=== PATIENT | female | born 1965 | race Caucasian/White ===

== ENCOUNTER 2017-03-07 07:29 | Outpatient (CLI) | payer BC, OTHER ==
[2017-03-07 09:43] LABS: BASOPHILS % (AUTO) 0.5 % (0.0-2.0); EOSINOPHILS # (AUTO) 0.1 K/uL (0.0-0.7); EOSINOPHILS % (AUTO) 1.6 % (0.0-7.0); HEMATOCRIT 42.9 % (31.2-41.9); HEMOGLOBIN 14.4 g/dL (10.9-14.3); LYMPHOCYTES # (AUTO) 2.4 K/uL (20.0-40.0); LYMPHOCYTES % (AUTO) 36.2 % (20.5-51.5); MEAN CORPUSCULAR HEMOGLOBIN 27.3 uug (24.7-32.8); MEAN CORPUSCULAR HGB CONC 34 g/dL (32.3-35.6); MEAN CORPUSCULAR VOLUME 81.3 fL (75.5-95.3); MONOCYTES # (AUTO) 0.3 K/uL (2.0-10.0); MONOCYTES % (AUTO) 5.1 % (0.0-11.0); NEUTROPHILS # (AUTO) 3.8 K/uL (1.8-8.9); NEUTROPHILS % (AUTO) 56.6 % (38.5-71.5); PLATELET COUNT (AUTO) 174 K/uL (179-408); RED BLOOD CELL COUNT(AUTO) 5.28 MIL/uL (3.63-4.92); RED CELL DISTRIBUTION WIDTH 12.5 % (12.3-17.7); WHITE BLOOD COUNT (AUTO) 6.6 K/uL (3.8-11.8)
[2017-03-07 10:06] LABS: *BILIRUBIN,URIN NEGATIVE (NEGATIVE); *BLOOD, URINE NEGATIVE (NEGATIVE); *CLARITY,URINE CLEAR (CLEAR); *COLOR,URINE YELLOW (YELLOW); *KETONES,URINE NEGATIVE (NEGATIVE); *PROTEIN,URINE NEGATIVE (NEGATIVE); *UROBILINOGEN,URINE 0.2 E.U./dl (NORMAL); ALBUMIN 4.1 g/dL (3.4-5.0); BILIRUBIN,TOTAL 0.4 mg/dL (0.2-1.0); CALCIUM 9.1 mg/dL (8.5-10.1); CREATININE 0.9 mg/dL (0.6-1.3); LEUKOCYTE ESTERASE ,URINE NEGATIVE (NEGATIVE); NITRITE, URINE NEGATIVE (NEGATIVE); POTASSIUM 4.1 mmol/L (3.5-5.1); TOTAL PROTEIN, SERUM 7.8 g/dL (6.4-8.2); UGLUCOSE NEGATIVE (NEGATIVE)
[2017-03-07 10:11] LABS: THYROID STIMULATING HORMONE 2.305 mIU/mL (0.358-3.740)
[2017-03-07 10:22] LABS: BACTERIA,URINE FEW /HPF (NONE SEEN); RBC,URINE 0-3 /HPF (0-3); SQUAMOUS EPITHELIAL CELL,UR FEW /HPF (NONE SEEN); WBC,URINE 0-3 /HPF (0-3)
== END 2017-03-07 23:59 | disposition home or self-care (01) ==
LOC: LAB 07:29
PROVIDERS: ATTEND Family Medicine
DX: I10 Essential (primary) hypertension (principal); E55.9 Vitamin D deficiency, unspecified; R73.9 Hyperglycemia, unspecified
CPT/HCPCS: 36415; 82306; 84443; 85025

== ENCOUNTER → 2017-05-28 | Outpatient (CLI) | payer BC, OTHER ==
[2017-05-28 08:32] LABS: BASOPHILS % (AUTO) 0.7 % (0.0-2.0); EOSINOPHILS # (AUTO) 0.1 K/uL (0.0-0.7); EOSINOPHILS % (AUTO) 1.3 % (0.0-7.0); HEMATOCRIT 42.1 % (37-47); HEMOGLOBIN 13.6 G/DL (12.0-16.0); LYMPHOCYTES # (AUTO) 2.3 K/UL (0.8-4.8); MEAN CORPUSCULAR HEMOGLOBIN 26.8 UUG (27.0-31.0); MEAN CORPUSCULAR HGB CONC 32 g/dL (32.0-37.0); MEAN CORPUSCULAR VOLUME 82.6 FL (81.0-99.0); MONOCYTES # (AUTO) 0.4 K/UL (0.1-1.30); MONOCYTES % (AUTO) 6.7 % (0.0-11.0); NEUTROPHILS # (AUTO) 3.6 K/UL (1.8-8.9); NEUTROPHILS % (AUTO) 55.3 % (38.5-71.5); PLATELET COUNT (AUTO) 193 K/UL (150-450); WHITE BLOOD COUNT (AUTO) 6.4 K/UL (4.0-11.2)
[2017-05-28 08:42] LABS: POTASSIUM 4.2 mmol/L (3.5-5.1)
[2017-05-28 08:48] LABS: BILIRUBIN,TOTAL 0.5 mg/dL (0.2-1.0); TOTAL PROTEIN, SERUM 7.5 g/dL (6.4-8.2)
[2017-05-28 08:59] LABS: THYROID STIMULATING HORMONE 2.343 mIU/mL (0.358-3.740)
== END | disposition home or self-care (01) ==
LOC: LAB 07:37
PROVIDERS: ATTEND Family Medicine
DX: E78.2 Mixed hyperlipidemia (principal); E55.9 Vitamin D deficiency, unspecified; R73.9 Hyperglycemia, unspecified
CPT/HCPCS: 36415; 82306; 84443; 84480; 85025

== ENCOUNTER → 2017-08-20 | Outpatient (CLI) | payer BC, OTHER ==
[2017-08-20 11:58] LABS: BILIRUBIN,TOTAL 0.3 mg/dL (0.2-1.0); POTASSIUM 4.1 mmol/L (3.5-5.1); TOTAL PROTEIN, SERUM 7.8 g/dL (6.4-8.2)
[2017-08-20 12:00] LABS: BASOPHILS % (AUTO) 0.6 % (0.0-2.0); EOSINOPHILS % (AUTO) 0.4 % (0.0-7.0); HEMATOCRIT 41.8 % (37-47); LYMPHOCYTES # (AUTO) 2.4 K/UL (0.8-4.8); LYMPHOCYTES % (AUTO) 34.8 % (20.5-51.5); MEAN CORPUSCULAR HEMOGLOBIN 27.4 UUG (27.0-31.0); MEAN CORPUSCULAR HGB CONC 34 g/dL (32.0-37.0); MEAN CORPUSCULAR VOLUME 81.8 FL (81.0-99.0); MONOCYTES # (AUTO) 0.4 K/UL (0.1-1.30); MONOCYTES % (AUTO) 5.5 % (0.0-11.0); NEUTROPHILS # (AUTO) 4.2 K/UL (1.8-8.9); NEUTROPHILS % (AUTO) 58.7 % (38.5-71.5); PLATELET COUNT (AUTO) 208 K/UL (150-450); RED BLOOD CELL COUNT(AUTO) 5.11 MIL/UL (4.2-5.4)
[2017-08-20 12:20] LABS: THYROID STIMULATING HORMONE 3.693 mIU/mL (0.358-3.740)
[2017-08-20 12:23] LABS: *BILIRUBIN,URIN NEGATIVE (NEGATIVE); *BLOOD, URINE NEGATIVE (NEGATIVE); *CLARITY,URINE CLEAR (CLEAR); *COLOR,URINE YELLOW (YELLOW); *KETONES,URINE NEGATIVE (NEGATIVE); *PROTEIN,URINE NEGATIVE (NEGATIVE); *UROBILINOGEN,URINE 0.2 E.U./dl (NORMAL); LEUKOCYTE ESTERASE ,URINE 2+ (NEGATIVE); NITRITE, URINE NEGATIVE (NEGATIVE); UGLUCOSE NEGATIVE (NEGATIVE)
[2017-08-20 12:42] LABS: BACTERIA,URINE NONE SEEN /HPF (NONE SEEN); RBC,URINE NONE SEEN /HPF (0-3); SQUAMOUS EPITHELIAL CELL,UR MODERATE /HPF (NONE SEEN); WBC,URINE 0-3 /HPF (0-3)
== END | disposition home or self-care (01) ==
LOC: LAB 11:27
PROVIDERS: ATTEND Family Medicine
DX: E55.9 Vitamin D deficiency, unspecified (principal); E11.9 Type 2 diabetes mellitus without complications
CPT/HCPCS: 82043; 82306; 82570; 84443; 85025

== ENCOUNTER 2018-01-21 10:07 | Outpatient (CLI) | payer BC, OTHER ==
[2018-01-21 10:36] LABS: *BILIRUBIN,URIN NEGATIVE (NEGATIVE); *BLOOD, URINE Trace-intact (NEGATIVE); *CLARITY,URINE CLEAR (CLEAR); *COLOR,URINE YELLOW (YELLOW); *KETONES,URINE NEGATIVE (NEGATIVE); *PROTEIN,URINE NEGATIVE (NEGATIVE); *UROBILINOGEN,URINE 0.2 E.U./dl (NORMAL); LEUKOCYTE ESTERASE ,URINE 1+ (NEGATIVE); NITRITE, URINE NEGATIVE (NEGATIVE); UGLUCOSE NEGATIVE (NEGATIVE)
[2018-01-21 10:37] LABS: BASOPHILS # (AUTO) 0.1 K/uL (0.0-8.0); BASOPHILS % (AUTO) 0.9 % (0.0-2.0); EOSINOPHILS # (AUTO) 0.1 K/uL (0.0-0.7); EOSINOPHILS % (AUTO) 1.2 % (0.0-7.0); HEMATOCRIT 42.5 % (31.2-41.9); HEMOGLOBIN 14.3 g/dL (10.9-14.3); LYMPHOCYTES # (AUTO) 2.4 K/uL (20.0-40.0); LYMPHOCYTES % (AUTO) 35.3 % (20.5-51.5); MEAN CORPUSCULAR HEMOGLOBIN 27.7 uug (24.7-32.8); MEAN CORPUSCULAR HGB CONC 34 g/dL (32.3-35.6); MEAN CORPUSCULAR VOLUME 82.4 fL (75.5-95.3); MONOCYTES # (AUTO) 0.3 K/uL (2.0-10.0); MONOCYTES % (AUTO) 4.2 % (0.0-11.0); NEUTROPHILS # (AUTO) 3.9 K/uL (1.8-8.9); NEUTROPHILS % (AUTO) 58.4 % (38.5-71.5); PLATELET COUNT (AUTO) 181 K/uL (179-408); RED BLOOD CELL COUNT(AUTO) 5.15 MIL/uL (3.63-4.92); WHITE BLOOD COUNT (AUTO) 6.7 K/uL (3.8-11.8)
[2018-01-21 10:42] LABS: BACTERIA,URINE FEW /HPF (NONE SEEN); SQUAMOUS EPITHELIAL CELL,UR FEW /HPF (NONE SEEN)
[2018-01-21 10:56] LABS: BILIRUBIN,TOTAL 0.5 mg/dL (0.2-1.0); CREATININE 0.9 mg/dL (0.6-1.3); POTASSIUM 3.8 mmol/L (3.5-5.1)
[2018-01-21 11:28] LABS: THYROID STIMULATING HORMONE 3.31 mIU/mL (0.358-3.740)
== END 2018-01-21 23:59 | disposition home or self-care (01) ==
LOC: LAB 10:07
PROVIDERS: ATTEND Family Medicine
DX: E11.9 Type 2 diabetes mellitus without complications (principal)
CPT/HCPCS: 82043; 82570; 84443; 85025

== ENCOUNTER 2018-01-22 08:08 | Outpatient (CLI) | payer BC, OTHER ==
[2018-01-22 08:34] LABS: CREATININE 0.8 mg/dL (0.6-1.3); POTASSIUM 4.4 mmol/L (3.5-5.1)
== END 2018-01-22 23:59 | disposition home or self-care (01) ==
LOC: LAB 08:08
PROVIDERS: ATTEND Family Medicine
DX: E87.1 Hypo-osmolality and hyponatremia (principal)
CPT/HCPCS: 36415

== ENCOUNTER 2018-01-29 08:37 | Outpatient (CLI) | payer BC, OTHER | END 2018-01-29 23:59 | disposition home or self-care (01) | LOC: US 08:37 | PROVIDERS: ATTEND Family Medicine | DX: N28.1 Cyst of kidney, acquired (principal) | CPT/HCPCS: 76770 ==

== ENCOUNTER 2018-02-18 08:48 | Outpatient (CLI) | payer BC, OTHER ==
[2018-02-18 09:54] LABS: *BILIRUBIN,URIN NEGATIVE (NEGATIVE); *BLOOD, URINE NEGATIVE (NEGATIVE); *CLARITY,URINE CLOUDY (CLEAR); *COLOR,URINE YELLOW (YELLOW); *KETONES,URINE NEGATIVE (NEGATIVE); *PROTEIN,URINE NEGATIVE (NEGATIVE); *UROBILINOGEN,URINE 0.2 E.U./dl (NORMAL); BASOPHILS % (AUTO) 0.7 % (0.0-2.0); EOSINOPHILS # (AUTO) 0.1 K/uL (0.0-0.7); EOSINOPHILS % (AUTO) 2.2 % (0.0-7.0); HEMATOCRIT 44.2 % (31.2-41.9); HEMOGLOBIN 14.6 g/dL (10.9-14.3); LEUKOCYTE ESTERASE ,URINE 2+ (NEGATIVE); LYMPHOCYTES # (AUTO) 2.3 K/uL (20.0-40.0); LYMPHOCYTES % (AUTO) 40.8 % (20.5-51.5); MEAN CORPUSCULAR HEMOGLOBIN 27.7 uug (24.7-32.8); MEAN CORPUSCULAR HGB CONC 33 g/dL (32.3-35.6); MEAN CORPUSCULAR VOLUME 83.7 fL (75.5-95.3); MONOCYTES # (AUTO) 0.3 K/uL (2.0-10.0); MONOCYTES % (AUTO) 6.1 % (0.0-11.0); NEUTROPHILS # (AUTO) 2.8 K/uL (1.8-8.9); NEUTROPHILS % (AUTO) 50.2 % (38.5-71.5); NITRITE, URINE NEGATIVE (NEGATIVE); PH,URINE 5.5 (5.0-8.0); PLATELET COUNT (AUTO) 191 K/uL (179-408); RED BLOOD CELL COUNT(AUTO) 5.28 MIL/uL (3.63-4.92); UGLUCOSE NEGATIVE (NEGATIVE); WHITE BLOOD COUNT (AUTO) 5.7 K/uL (3.8-11.8)
[2018-02-18 10:02] LABS: BACTERIA,URINE FEW /HPF (NONE SEEN); MUCUS,URINE FEW /LPF (0-FEW); SQUAMOUS EPITHELIAL CELL,UR MODERATE /HPF (NONE SEEN); WBC,URINE TNTC /HPF (0-3)
[2018-02-18 10:20] LABS: THYROID STIMULATING HORMONE 2.371 mIU/mL (0.358-3.740)
[2018-02-18 10:37] LABS: BILIRUBIN,TOTAL 0.4 mg/dL (0.2-1.0); MAGNESIUM 2.1 mg/dL (1.8-2.4); PHOSPHOROUS 3.7 mg/dL (2.5-4.9); POTASSIUM 3.7 mmol/L (3.5-5.1)
[2018-02-19 08:06] LABS: THYROID PEROXIDASE (TPO) AB 33 IU/mL (0-34); TRIIODOTHYRONINE, FREE 3.2 pg/mL (2.0-4.4)
[2018-02-19 12:07] LABS: ESTRADIOL 12.9 pg/mL (.); FOLLICLE STIMULATION HORMONE 64.3 mIU/mL (.); LUTEINIZING HORMONE 26.8 mIU/mL (.); VIT D, 25-HYDROXY 33.6 ng/mL (30.0-100.0)
[2018-02-19 14:12] LABS: INSULIN 15.4 uIU/mL (2.6-24.9)
[2018-02-20 05:08] LABS: INSULIN-LIKE GROWTH FACTOR 118 ng/mL (53-190)
== END 2018-02-18 23:59 | disposition home or self-care (01) ==
LOC: LAB 08:48
PROVIDERS: ATTEND Surgery
DX: Z01.818 Encounter for other preprocedural examination (principal)
CPT/HCPCS: 36415; 70030-TC; 82306; 82670; 82746; 83001; 83002; 83090; 83525; 83735; 84100; 84305; 84443; 84481; 84482; 85025; 85730

== ENCOUNTER 2018-02-21 08:31 | Day surgery (SDC) | payer BC, OTHER ==
[2018-02-21] MEDS ORDERED: SIMETHICONE 40 MG/0.6 ML 30 ML BOTTLE MC ONE (08:32)
[2018-02-21] MEDS ORDERED: IV NORMAL SALINE 1000 ML BAG IV ONE (08:32)
[2018-02-21] MEDS ORDERED: PROPOFOL 200 MG/20 ML BOTTLE IV ONE (08:32)
== END 2018-02-21 13:30 | disposition home or self-care (01) ==
LOC: DS 08:31
PROVIDERS: ATTEND Surgery
DX: K64.8 Other hemorrhoids (principal); K25.9 Gastric ulcer, unspecified as acute or chronic, without hemorrhage or perforation; K29.70 Gastritis, unspecified, without bleeding; K44.9 Diaphragmatic hernia without obstruction or gangrene; K57.30 Diverticulosis of large intestine without perforation or abscess without bleeding; K29.80 Duodenitis without bleeding; K63.89 Other specified diseases of intestine; Z79.899 Other long term (current) drug therapy; J45.909 Unspecified asthma, uncomplicated; Z85.42 Personal history of malignant neoplasm of other parts of uterus; R73.9 Hyperglycemia, unspecified; E78.5 Hyperlipidemia, unspecified; I10 Essential (primary) hypertension; G43.909 Migraine, unspecified, not intractable, without status migrainosus; E55.9 Vitamin D deficiency, unspecified
CPT/HCPCS: 71046; 88342; A4217; A4663; J3490; J7030

== ENCOUNTER 2018-03-26 09:14 | Outpatient (CLI) | payer BC, OTHER ==
[2018-03-26 09:54] LABS: CREATININE 0.9 mg/dL (0.6-1.3)
[2018-03-27] MEDS ORDERED: IV NORMAL SALINE 100 ML ONE (07:29)
[2018-03-27] MEDS ORDERED: NORMAL SALINE FLUSH 10 ML DISP.SYRIN ONE (07:29)
[2018-03-27] MEDS ORDERED: IOHEXOL 300MG/ML 100 ML INFUS..BTL ONE (07:29)
[2018-03-27] MEDS ORDERED: SWABABLE VALVE TRANSFER SET EA MC ONE (07:29)
== END 2018-03-26 23:59 | disposition home or self-care (01) ==
LOC: LAB 09:14
PROVIDERS: ATTEND Family Medicine
DX: R31.9 Hematuria, unspecified (principal)
CPT/HCPCS: 36415; 84520; J3490; Q9967

== ENCOUNTER 2018-03-27 07:02 | Outpatient (CLI) | payer BC, OTHER | END 2018-03-27 23:59 | disposition home or self-care (01) | LOC: RAD 07:02 | PROVIDERS: ATTEND Family Medicine | DX: N28.1 Cyst of kidney, acquired (principal) | CPT/HCPCS: J3490; Q9967 ==

== ENCOUNTER 2018-12-01 09:11 | Emergency (ER) | payer BC, OTHER ==
[~2018-12-01] VITALS: Ht 157.5 cm; Wt 74.8 kg
[2018-12-01] MEDS ORDERED: DEXAMETHASONE SOD PHOSPHATE 4 MG INJ IV ONE (09:45)
[2018-12-01] MEDS ORDERED: DEXAMETHASONE SOD PHOSPHATE 10 MG INJ ONE (09:47)
[2018-12-01] MEDS ORDERED: diphenhydrAMINE 50 MG/1 ML VIAL ONE (09:56)
[2018-12-01] MEDS ORDERED: diphenhydrAMINE 50 MG/1 ML VIAL IV ONE (10:00)
[2018-12-01 10:33] VITALS: BP 120/70
--- NOTE | 2018-12-01 10:34 | NUR ---
Patient discharged to home in stable conditon. Written and verbal after care instructions given. Patient verbalizes understanding of instructions.
== END 2018-12-01 10:34 | disposition home or self-care (01) ==
LOC: ER 09:11
DX: T78.40XA Allergy, unspecified, initial encounter (principal); L50.9 Urticaria, unspecified; Z88.5 Allergy status to narcotic agent; Z91.018 Allergy to other foods
CPT/HCPCS: 96374; 96375; 99283; J1100; J1200; A4663

== ENCOUNTER 2019-03-12 07:54 | Outpatient (CLI) | payer BC, OTHER ==
[2019-03-13 08:06] LABS: *CELIAC IMMUNOGLOBULIN A 234 mg/dL (87-352)
[2019-03-14 11:06] LABS: *CELIAC DEAMIDATED GLIADIN IGA 8 units (0-19); *CELIAC DEAMIDATED GLIADIN IGG 2 units (0-19)
== END 2019-03-12 23:59 | disposition home or self-care (01) ==
LOC: LAB 07:54
PROVIDERS: ATTEND Family Medicine
DX: Z91.018 Allergy to other foods (principal)
CPT/HCPCS: 36415; 82785

== ENCOUNTER 2019-05-26 09:13 | Emergency (ER) | payer BC, OTHER ==
[~2019-05-26] VITALS: Ht 157.5 cm; Wt 74.8 kg
--- NOTE | 2019-05-26 09:25 | NUR ---
PADMINI MCCRARY AT BEDSIDE FOR MSE.
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
--- NOTE | 2019-05-26 09:42 | NUR ---
Patient discharged to home in stable conditon. Written and verbal after care instructions given. Patient verbalizes understanding of instructions. ALL BELONGINGS W/ PT. PT SELF-AMBULATED W/O DIFFICULTY.
[2019-05-26 09:43] VITALS: BP 133/79
== END 2019-05-26 09:44 | disposition home or self-care (01) ==
LOC: ER 09:13
DX: S39.012A Strain of muscle, fascia and tendon of lower back, initial encounter (principal); M54.41 Lumbago with sciatica, right side; Z90.49 Acquired absence of other specified parts of digestive tract; Z90.710 Acquired absence of both cervix and uterus; Z88.5 Allergy status to narcotic agent; Z91.018 Allergy to other foods; X50.1XXA Overexertion from prolonged static or awkward postures, initial encounter; Y93.89 Activity, other specified; Y92.89 Other specified places as the place of occurrence of the external cause; Y99.8 Other external cause status
CPT/HCPCS: A4663

== ENCOUNTER 2020-04-13 07:59 | Outpatient (CLI) | payer BC, OTHER ==
[2020-04-13 09:04] LABS: BASOPHILS % (AUTO) 0.6 % (0.0-2.0); EOSINOPHILS # (AUTO) 0.1 K/uL (0.0-0.7); HEMATOCRIT 42.1 % (31.2-41.9); HEMOGLOBIN 14.1 g/dL (10.9-14.3); LYMPHOCYTES # (AUTO) 2.7 K/uL (20.0-40.0); LYMPHOCYTES % (AUTO) 41.7 % (20.5-51.5); MEAN CORPUSCULAR HEMOGLOBIN 28.1 uug (24.7-32.8); MEAN CORPUSCULAR HGB CONC 33 g/dL (32.3-35.6); MONOCYTES # (AUTO) 0.3 K/uL (2.0-10.0); MONOCYTES % (AUTO) 5.2 % (0.0-11.0); NEUTROPHILS # (AUTO) 3.3 K/uL (1.8-8.9); NEUTROPHILS % (AUTO) 51.5 % (38.5-71.5); PLATELET COUNT (AUTO) 188 K/uL (179-408); RED BLOOD CELL COUNT(AUTO) 5.01 MIL/uL (3.63-4.92); WHITE BLOOD COUNT (AUTO) 6.4 K/uL (3.8-11.8)
[2020-04-13 09:29] LABS: BILIRUBIN,TOTAL 0.5 mg/dL (0.2-1.0); POTASSIUM 4.2 mmol/L (3.5-5.1); TOTAL PROTEIN, SERUM 7.6 g/dL (6.4-8.2)
[2020-04-13 10:05] LABS: THYROID STIMULATING HORMONE 2.973 mIU/mL (0.358-3.740)
== END 2020-04-13 23:59 | disposition home or self-care (01) ==
LOC: LAB 07:59
PROVIDERS: ATTEND Internal Medicine Interventional Cardiology
DX: E03.9 Hypothyroidism, unspecified (principal); E11.9 Type 2 diabetes mellitus without complications; E78.5 Hyperlipidemia, unspecified; I25.10 Atherosclerotic heart disease of native coronary artery without angina pectoris
CPT/HCPCS: 36415; 84443; 85025

== ENCOUNTER 2020-10-15 06:40 | Outpatient (CLI) | payer BC, OTHER ==
[2020-10-15 07:08] LABS: *BILIRUBIN,URIN NEGATIVE (NEGATIVE); *BLOOD, URINE NEGATIVE (NEGATIVE); *CLARITY,URINE SLIGHTLY CLOUDY (CLEAR); *COLOR,URINE YELLOW (YELLOW); *KETONES,URINE NEGATIVE (NEGATIVE); *UROBILINOGEN,URINE 0.2 E.U./dl (NORMAL); LEUKOCYTE ESTERASE ,URINE NEGATIVE (NEGATIVE); NITRITE, URINE NEGATIVE (NEGATIVE); PH,URINE 7.5 (5.0-8.0); UGLUCOSE NEGATIVE (NEGATIVE)
[2020-10-15 07:28] LABS: BASOPHILS # (AUTO) 0.1 K/uL (0.0-8.0); BASOPHILS % (AUTO) 0.8 % (0.0-2.0); EOSINOPHILS # (AUTO) 0.1 K/uL (0.0-0.7); EOSINOPHILS % (AUTO) 1.3 % (0.0-7.0); HEMATOCRIT 43.5 % (31.2-41.9); HEMOGLOBIN 14.6 g/dL (10.9-14.3); LYMPHOCYTES # (AUTO) 3.1 K/uL (20.0-40.0); LYMPHOCYTES % (AUTO) 42.8 % (20.5-51.5); MEAN CORPUSCULAR HEMOGLOBIN 28.2 uug (24.7-32.8); MEAN CORPUSCULAR HGB CONC 34 g/dL (32.3-35.6); MEAN CORPUSCULAR VOLUME 83.8 fL (75.5-95.3); MONOCYTES # (AUTO) 0.4 K/uL (2.0-10.0); MONOCYTES % (AUTO) 5.2 % (0.0-11.0); NEUTROPHILS # (AUTO) 3.6 K/uL (1.8-8.9); NEUTROPHILS % (AUTO) 49.9 % (38.5-71.5); PLATELET COUNT (AUTO) 194 K/uL (179-408); RED BLOOD CELL COUNT(AUTO) 5.19 MIL/uL (3.63-4.92); WHITE BLOOD COUNT (AUTO) 7.2 K/uL (3.8-11.8)
[2020-10-15 07:30] LABS: BILIRUBIN,TOTAL 0.6 mg/dL (0.2-1.0); CREATININE 0.9 mg/dL (0.6-1.3); POTASSIUM 4.3 mmol/L (3.5-5.1); TOTAL PROTEIN, SERUM 7.7 g/dL (6.4-8.2)
[2020-10-15 08:51] LABS: THYROID STIMULATING HORMONE 3.344 mIU/mL (0.358-3.740)
[2020-10-15 13:25] LABS: BACTERIA,URINE FEW /HPF (NONE SEEN); RBC,URINE NONE SEEN /HPF (0-3); SQUAMOUS EPITHELIAL CELL,UR FEW /HPF (NONE SEEN); URINE AMORPHOUS PHOSPHATES MODERATE /HPF; WBC,URINE 0-3 /HPF (0-3)
== END 2020-10-15 23:59 | disposition home or self-care (01) ==
LOC: LAB 06:40
PROVIDERS: ATTEND Family Medicine
DX: I10 Essential (primary) hypertension (principal); E11.9 Type 2 diabetes mellitus without complications; E78.2 Mixed hyperlipidemia; Z79.899 Other long term (current) drug therapy
CPT/HCPCS: 36415; 70030-TC; 82306; 84443; 85025

== ENCOUNTER 2021-07-14 10:18 | Outpatient (CLI) | payer BC, OTHER | END 2021-07-14 23:59 | disposition home or self-care (01) | LOC: XRAY 10:18 | PROVIDERS: ATTEND Internal Medicine Interventional Cardiology | DX: Z01.818 Encounter for other preprocedural examination (principal); I70.0 Atherosclerosis of aorta; R06.02 Shortness of breath; M47.814 Spondylosis without myelopathy or radiculopathy, thoracic region; M25.78 Osteophyte, vertebrae | CPT/HCPCS: 71046 ==

== ENCOUNTER 2021-07-19 08:44 | Outpatient (CLI) | payer BC, OTHER ==
[2021-07-19 09:28] LABS: HEMATOCRIT 42.4 % (31.2-41.9); MEAN CORPUSCULAR HEMOGLOBIN 28.3 uug (24.7-32.8); MEAN CORPUSCULAR VOLUME 84.6 fL (75.5-95.3); PLATELET COUNT (AUTO) 208 K/uL (179-408)
[2021-07-19 09:29] LABS: *BILIRUBIN,URIN NEGATIVE (NEGATIVE); *CLARITY,URINE CLEAR (CLEAR); *COLOR,URINE YELLOW (YELLOW); *KETONES,URINE NEGATIVE (NEGATIVE); *UROBILINOGEN,URINE 0.2 E.U./dl (NORMAL); LEUKOCYTE ESTERASE ,URINE TRACE (NEGATIVE); NITRITE, URINE NEGATIVE (NEGATIVE); PH,URINE 5.5 (5.0-8.0); UGLUCOSE NEGATIVE (NEGATIVE)
[2021-07-19 09:31] LABS: *BLOOD, URINE TRACE (NEGATIVE)
[2021-07-19 09:57] LABS: BILIRUBIN,TOTAL 0.5 mg/dL (0.2-1.0); CREATININE 0.8 mg/dL (0.6-1.3); POTASSIUM 4.3 mmol/L (3.5-5.1); TOTAL PROTEIN, SERUM 7.9 g/dL (6.4-8.2)
[2021-07-19 14:45] LABS: THYROID STIMULATING HORMONE 2.47 mIU/mL (0.358-3.740)
[2021-07-19 14:51] LABS: BACTERIA,URINE FEW /HPF (NONE SEEN); SQUAMOUS EPITHELIAL CELL,UR FEW /HPF (NONE SEEN)
[2021-07-19 14:52] LABS: MUCUS,URINE FEW /LPF (0-FEW); URINE AMORPHOUS URATE MODERATE /HPF
== END 2021-07-19 23:59 | disposition home or self-care (01) ==
LOC: LAB 08:44
PROVIDERS: ATTEND Internal Medicine Interventional Cardiology
DX: E11.9 Type 2 diabetes mellitus without complications (principal); E78.5 Hyperlipidemia, unspecified; E03.9 Hypothyroidism, unspecified; E55.9 Vitamin D deficiency, unspecified; N39.0 Urinary tract infection, site not specified; K86.2 Cyst of pancreas; R07.89 Other chest pain
CPT/HCPCS: 36415; 82306; 83550; 84443; 85025; 85610; 85730; 87086

== ENCOUNTER 2022-04-25 08:52 | Outpatient (CLI) | payer BC, OTHER ==
[2022-04-25 09:27] LABS: HEMATOCRIT 42.7 % (31.2-41.9); MEAN CORPUSCULAR HEMOGLOBIN 28.4 uug (24.7-32.8); MEAN CORPUSCULAR VOLUME 83.4 fL (75.5-95.3); PLATELET COUNT (AUTO) 208 K/uL (179-408)
[2022-04-25 09:49] LABS: *BILIRUBIN,URIN 1+ (NEGATIVE); *BLOOD, URINE NEGATIVE (NEGATIVE); *CLARITY,URINE CLEAR (CLEAR); *COLOR,URINE YELLOW (YELLOW); *KETONES,URINE NEGATIVE (NEGATIVE); *UROBILINOGEN,URINE 0.2 E.U./dl (NORMAL); LEUKOCYTE ESTERASE ,URINE NEGATIVE (NEGATIVE); NITRITE, URINE NEGATIVE (NEGATIVE); UGLUCOSE NEGATIVE (NEGATIVE)
[2022-04-25 09:50] LABS: BILIRUBIN,TOTAL 0.8 mg/dL (0.2-1.0); CREATININE 0.9 mg/dL (0.6-1.3); POTASSIUM 4.1 mmol/L (3.5-5.1)
[2022-04-25 09:52] LABS: THYROID STIMULATING HORMONE 2.486 mIU/mL (0.358-3.740)
== END 2022-04-25 23:59 | disposition home or self-care (01) ==
LOC: LAB 08:52
PROVIDERS: ATTEND Family Medicine
DX: Z00.01 Encounter for general adult medical examination with abnormal findings (principal)
CPT/HCPCS: 36415; 82306; 84443; 85025

== ENCOUNTER 2022-09-01 09:10 | Outpatient (CLI) | payer BC, OTHER | END 2022-09-01 23:59 | disposition home or self-care (01) | LOC: RAD 09:10 | PROVIDERS: ATTEND Family Medicine | DX: R05.1 Acute cough (principal) | CPT/HCPCS: 71046 ==

== ENCOUNTER 2022-11-14 09:23 | Outpatient (CLI) | END 2022-11-14 23:59 | disposition home or self-care (01) | DX: Z01.818 Encounter for other preprocedural examination (principal) ==

== ENCOUNTER 2022-11-17 07:52 | Outpatient (CLI) | payer BC, OTHER ==
[2022-11-22] MEDS ORDERED: TRAM50TA2 PO (12:26)
[2022-11-22] MEDS ORDERED: FERR324T PO (12:26)
== END 2022-11-17 23:59 | disposition home or self-care (01) ==
LOC: LAB 07:52
PROVIDERS: ATTEND Surgery
DX: Z01.812 Encounter for preprocedural laboratory examination (principal); Z20.822 Contact with and (suspected) exposure to COVID-19

== ENCOUNTER 2022-11-20 06:05 | Inpatient (IN) | payer BC, OTHER ==
[~2022-11-20] VITALS: Ht 157.5 cm; Wt 66.7 kg
[2022-11-20] MEDS ORDERED: CEFAZOLIN 1 G VIAL ONE (06:28)
[2022-11-20] MEDS ORDERED: MIDAZOLAM HCL 2 MG/2 ML VIAL ONE (07:29)
[2022-11-20] MEDS ORDERED: ROCURONIUM BROMIDE 50 MG/5 ML VIAL ONE (07:29)
[2022-11-20] MEDS ORDERED: HYDROMORPHONE 2 MG/1 ML DISP.SYRIN ONE (07:29)
[2022-11-20] MEDS ORDERED: PROPOFOL 200 MG/20 ML BOTTLE IV ONE (11:44)
[2022-11-20] MEDS ORDERED: METOCLOPRAMIDE HCL 10 MG/2 ML VIAL IV ONE (11:44)
[2022-11-20] MEDS ORDERED: LIDOCAINE-MPF 2% 5 ML VIAL IJ ONE (11:44)
[2022-11-20] MEDS ORDERED: NEOSTIGMINE METHYLSULFATE 10 MG/10 ML VIAL IM ONE (11:44)
[2022-11-20] MEDS ORDERED: GLYCOPYRROLATE 0.2 MG/ML VIAL IJ ONE (11:44)
[2022-11-20] MEDS ORDERED: EPHEDRINE SULFATE 50 MG/ML AMPUL IM ONE (11:44)
[2022-11-20] MEDS ORDERED: SEVOFLURANE 250 ML BOTTLE IH ONE (11:44)
[2022-11-20] MEDS ORDERED: ONDANSETRON 4 MG/2 ML VIAL IV ONE (11:44)
[2022-11-20] MEDS ORDERED: DEXAMETHASONE SOD PHOSPHATE 4 MG INJ IV ONE (11:44)
[2022-11-20] MEDS ORDERED: CEFAZOLIN 1 G VIAL IM ONE (11:44)
[2022-11-20] MEDS ORDERED: ONDANSETRON 4 MG/2 ML VIAL IV PRN (12:15)
[2022-11-20] MEDS ORDERED: POTASSIUM CHLORIDE 20 MEQ in IV D5 1/2 NS 1000 ML 1,000 ML IV PRN (12:15)
[2022-11-20] MEDS ORDERED: CHOL200013 PO (12:34)
[2022-11-20] MEDS ORDERED: ROSU10TA2 PO (12:34)
[2022-11-20] MEDS ORDERED: ALBU8.5H8 IH (12:34)
[2022-11-20] MEDS ORDERED: LOSA25TA27 PO (12:34)
[2022-11-20] MEDS ORDERED: MAGN400C PO (12:34)
[2022-11-20] MEDS ORDERED: LACT1CAP69 PO (12:34)
[2022-11-20] MEDS ORDERED: CRAN400C PO (12:34)
[2022-11-20] MEDS ORDERED: ASCO500T21 PO (12:34)
[2022-11-20] MEDS ORDERED: METF-442 PO (12:36)
[2022-11-20] MEDS ORDERED: TURM538C PO (12:36)
[2022-11-20] MEDS ORDERED: DULA1.5P XX (12:36)
[2022-11-20] MEDS ORDERED: OMEG1CAP PO (12:37)
[2022-11-20 13:31] VITALS: BP 102/65
[2022-11-20] MEDS: OXYCODONE/APAP 5-325 MG TABLET PO PRN ×2 (13:41→18:46)
[2022-11-20] MEDS ORDERED: CEFAZOLIN 1 G VIAL IM SCH (14:00)
[2022-11-20] MEDS: CEFAZOLIN 1 G in IV DEXTROSE 5% 50 ML IV SCH ×2 (14:09→22:05)
[2022-11-20] MEDS ORDERED: ALBUTEROL SULFATE 8 GM HFA.AER.AD IH PRN (14:45)
[2022-11-20] MEDS ORDERED: DULAGLUTIDE 3 MG XX SCH (14:45)
[2022-11-20] MEDS ORDERED: ALBUTEROL SULFATE 2.5 MG/3 ML NEBU NEB PRN (14:45)
[2022-11-20] MEDS: DOCUSATE SODIUM 100 MG CAPSULE PO SCH ×2 (15:48→20:49)
--- NOTE | 2022-11-20 19:01 | NUR ---
RECEIVED IN BED, ALERT ORIENTED, NO COMPLAIN OF PAIN, FAMILY AT BEDSIDE. PATIENT HAS ICE PACK CLOSE TO BREAST FOR PAIN AND COMFORT, PATIENT VOIDING BUT NOT PASSING GAS YET, ASSISTED WITH TOILETING AT COMMODE, PATIENT ATE YELLO TOLERATE WELL NO NAUSEA NO VOMTING NOTED, CONT TO MONITOR.
[2022-11-20 20:00] VITALS: BP 101/74
--- NOTE | 2022-11-20 20:13 | NUR ---
RECEIVED REPORT FROM PHIL FONG FROM THE OR. PATIENT IS ALERT AND & ORIENTED X4 AND ABLE TO SPEAK [place]. PATIENT DENIES NAUSEA AND VOMITING. PATIENT TOLERATES PO MEDICATIONS AND DIET WELL. PATIENT COMPLAINT OF PAIN. RN GAVE PAIN MEDICATIONS ORDERED. AT 18:40PM, PATIENT COMPLAINED OF PAIN. RN REACHED OUT TO MD. MD PERMITTED RN TO GIVE PERCOCET DOSE 1 HOUR EARLY. PATIENT PAIN IS MANAGED. PATIENT VOIDED AT 16:00PM VIA COMMODE. NO ACUTE DISTRESSED NOTED. INCENTIVE SPIROMETER GIVEN AND ENCOURAGED TO USE. FALL PRECAUTIONS OBSERVED, BED IN LOWEST POSITION AND BED ALARM ACTIVATED. ALL NEEDS MET AT THIS TIME. ENDORSED CARE TO PHIL ELLIS, FOR CONTINUATION OF CARE.
[2022-11-20] MEDS: SENNOSIDES 1 TABLET PO SCH (20:46)
[2022-11-20] MEDS: ATORVASTATIN 40 MG TABLET PO SCH (20:46)
[2022-11-21] VITALS: BP 99/63
[2022-11-21] MEDS: OXYCODONE/APAP 5-325 MG TABLET PO PRN ×4 (01:02→21:40)
--- NOTE | 2022-11-21 01:35 | NUR ---
PATIENT AWAKE NO SOB NO CHEST PAIN, COMPLAIN OF BREAST PAIN, REFLENISH HER ICE PACK FOR PAIN AND COMFORT ON SURGICAL SITE, COMPLAIN OF 8/10 PAIN GIVEN PAIN MEDS ORDERED, CONT TO MONITOR.
[2022-11-21 04:00] VITALS: BP 108/57
[2022-11-21] MEDS: CEFAZOLIN 1 G in IV DEXTROSE 5% 50 ML IV SCH ×3 (05:36→21:11)
--- NOTE | 2022-11-21 06:11 | NUR ---
Patient asleep but arousable no complain of pain, just little discomfort, continue ice pack on both chest for comfort and pain, voiding well bedside commode cont to monitor.
--- NOTE | 2022-11-21 07:04 | NUR ---
chest dressing intact, noted with dried small blood on r chest dressing and on left also, no active bleeding noted, no complain of pain, cont to monitor.
[2022-11-21 08:26] VITALS: BP 96/65
[2022-11-21] MEDS: ASCORBIC ACID 500 MG TABLET PO SCH (08:32)
[2022-11-21] MEDS: METFORMIN HCL 500 MG TABLET PO SCH (08:33)
[2022-11-21] MEDS: DOCUSATE SODIUM 100 MG CAPSULE PO SCH ×2 (08:33→21:00)
[2022-11-21] MEDS: MAGNESIUM OXIDE 400 MG TABLET PO SCH (08:33)
[2022-11-21] MEDS: CULTURELLE CAPSULE PO SCH (08:33)
[2022-11-21] MEDS: OMEGA-3 FATTY ACIDS/FISH OIL CAPSULE PO SCH (08:40)
[2022-11-21] MEDS ORDERED: TURMERIC ROOT EXTRACT PO SCH (09:00)
[2022-11-21] MEDS ORDERED: LACTOBACILLUS ACIDOPHILUS PO SCH (09:00)
[2022-11-21] MEDS ORDERED: MAGNESIUM OXIDE PO SCH (09:00)
[2022-11-21] MEDS ORDERED: Medication Not On Formulary EA (Rosuvastatin Calcium (Crestor) 20 MG) PO SCH (09:00)
[2022-11-21] MEDS ORDERED: CRANBERRY PO SCH (09:00)
[2022-11-21] MEDS ORDERED: Medication Not On Formulary EA (Metformin Hcl 1,000 MG) PO SCH (09:00)
[2022-11-21] MEDS ORDERED: LOSARTAN POTASSIUM 25 MG TABLET PO SCH (09:00)
[2022-11-21] MEDS ORDERED: ACETAMINOPHEN 325 MG TABLET PO PRN (09:30)
[2022-11-21] MEDS ORDERED: IV NS 1000 ML 1,000 ML IV PRN ×2 (11:00→13:15)
[2022-11-21 11:29] VITALS: BP 97/64
[2022-11-21] MEDS ORDERED: HYDROMORPHONE 1 MG/1 ML DISP.SYRIN IV PRN (12:15)
--- NOTE | 2022-11-21 12:30 | NUR ---
RN PULLED IV DILAUDID PER PATIENT REQUEST DUE TO INCREASING PAIN. RN WASTED FIRST 0.5ML WITH HOMER, RAW CHEESE WORKER, TO ACHIEVE DESIRED MD DOSE OF 0.5MG. PRIOR TO ADMINISTRATION OF DILAUDID, RN TOOK PATIENT'S BLOOD PRESSURE. B/P WAS 94/59. RN FELT UNSAFE GIVING DILAUDID. PATIENT REFUSED DILAUDID WELL DUE TO HER LOW BLOOD PRESSURE. RN DISCARDED THE REMAINING 0.5ML WITH HOMER, RAW CHEESE WORKER. RN NOTIFIED MD OF DECREASED BLOOD PRESSURE AND REQUEST FOR PAIN MEDICATION. ALL NEEDS MET AT THIS TIME.
[2022-11-21] MEDS ORDERED: KETOROLAC TROMETHAMINE 15 MG INJ IVP PRN (14:00)
[2022-11-21 15:13] VITALS: BP 101/57
--- NOTE | 2022-11-21 19:49 | NUR ---
RECEIVED REPORT FROM RADHA ELLIS RN SHIFT. PATIENT ALERT & ORIENTED X4 AND SPEAKS [place]. PATIENT VOIDS ADEQUATELY AND PENDING BOWEL MOVEMENTS. PATIENT TOLERATES PO AND IV MEDICATIONS WELL. PATIENT TOLERATES DIET. VITAL SIGNS STABLE. PATIENT REQUESTED BREAKTHROUGH PAIN MEDICATION. PRIOR TO ADMIN, RN TOOK PATIENT'S BLOOD PRESSURE. B/P: 94/59. RN DID NOT FEEL SAFE GIVING MEDICATION. RN NOTIFIED PROVIDER. PROVIDER GAVE ORDERS INDICATED. PATIENT PAIN MORE MANAGEABLE WITH NO ORDERS. BLOOD PRESSURE IMPROVED. PATIENT REFUSED TO TAKE TRULICITY WHILE HER STAY IN THE HOSPITAL. NO ACUTE DISTRESS NOTED. ENCOURAGED TO USE INCENTIVE SPIROMETER. ALL NEEDS MET AT THIS TIME. ENDORSED CARE TO PHIL ELLIS.
[2022-11-21 20:00] VITALS: BP 113/81
--- NOTE | 2022-11-21 20:00 | NUR ---
Patient alert oriented, no complain of pain at this time, patient with family and friends, patient voiding well, no bowel movement yet, according to am RN patient mention that probably she cannot move her bowel because she in hospital setting, encouraged patient to walk around and to take eat more vegetable to help the bowel movement, breast dressing intact, no active bleeding noted, cont to monitor.
[2022-11-21] MEDS: ATORVASTATIN 40 MG TABLET PO SCH (21:00)
[2022-11-21] MEDS: SENNOSIDES 1 TABLET PO SCH (21:11)
--- NOTE | 2022-11-22 05:29 | NUR ---
Patient asleep but arousable, no sob no chest pain, cont on pain management with effective results. cont to encourage to walk around the halls so that her bowel will move, cont to monitor.
[2022-11-22] MEDS: CEFAZOLIN 1 G in IV DEXTROSE 5% 50 ML IV SCH (06:09)
[2022-11-22 07:08] LABS: HEMATOCRIT 32.8 % (31.2-41.9); MEAN CORPUSCULAR HEMOGLOBIN 28.6 uug (24.7-32.8); MEAN CORPUSCULAR VOLUME 84.6 fL (75.5-95.3); PLATELET COUNT (AUTO) 150 K/uL (179-408)
[2022-11-22 07:45] LABS: THYROID STIMULATING HORMONE 4.96 mIU/mL (0.358-3.740)
[2022-11-22 08:10] LABS: BILIRUBIN,TOTAL 0.4 mg/dL (0.2-1.0); CREATININE 0.7 mg/dL (0.6-1.3); MAGNESIUM 1.9 mg/dL (1.8-2.4); PHOSPHOROUS 3.7 mg/dL (2.5-4.9); POTASSIUM 4.3 mmol/L (3.5-5.1); TOTAL PROTEIN, SERUM 6.1 g/dL (6.4-8.2)
[2022-11-22] MEDS: OXYCODONE/APAP 5-325 MG TABLET PO PRN (08:17)
[2022-11-22] MEDS: OMEGA-3 FATTY ACIDS/FISH OIL CAPSULE PO SCH (08:18)
[2022-11-22] MEDS: ASCORBIC ACID 500 MG TABLET PO SCH (08:18)
[2022-11-22] MEDS: CULTURELLE CAPSULE PO SCH (08:18)
[2022-11-22] MEDS: METFORMIN HCL 500 MG TABLET PO SCH (08:18)
[2022-11-22] MEDS: DOCUSATE SODIUM 100 MG CAPSULE PO SCH (08:22)
[2022-11-22] MEDS: MAGNESIUM OXIDE 400 MG TABLET PO SCH (08:22)
[2022-11-22] MEDS ORDERED: CHOLECALCIFEROL 1,000 UNIT TABLET PO SCH (09:00)
[2022-11-22 11:57] VITALS: BP 127/86
[2022-11-22] MEDS ORDERED: FERR324T PO (12:26)
[2022-11-22] MEDS ORDERED: TRAM50TA2 PO (12:26)
--- NOTE | 2022-11-22 13:23 | NUR ---
Pt. discharged home and picked up by her daughter. Noted to be stable upon the discharge and no c/o pain. All belonging returned to the pt. and necessary documents signed before discharge.
== END 2022-11-22 13:20 | disposition home or self-care (01) | DRG 585 ==
LOC: DS 06:05 → MEDSURG3 13:17
PROVIDERS: ADMIT Internal Medicine; ATTEND Internal Medicine
PROC: 0HBV0ZZ Excision of Bilateral Breast, Open Approach (ICD-10-PCS; principal; 2022-11-20)
DX: N62 Hypertrophy of breast (principal); N64.4 Mastodynia; E78.5 Hyperlipidemia, unspecified; I10 Essential (primary) hypertension; L30.4 Erythema intertrigo; I95.81 Postprocedural hypotension
CPT/HCPCS: 36415; 83550; 83735; 84100; 84443; 85025; A4649; A4663; G0378; J0690; J1100; J1170; J1885; J2250; J2405; J2765; J3480; J3490; J7040